=== PATIENT | female | born 1965 | race Caucasian/White ===

== ENCOUNTER 2021-10-05 11:44 | Emergency (ER) | payer SELFPAY ==
[2021-10-05 12:55] LABS: HEMOGLOBIN 15.3 gm/dl (12.3-15.3); RED BLOOD COUNT 5.12 M/UL (4.00-5.10); WHITE BLOOD COUNT 7.8 K/UL (4.5-11.0)
== END 2021-10-05 13:19 | disposition home or self-care (01) ==
LOC: ER1 11:44
PROVIDERS: Physician Assistant Medical
DX: J02.9 Acute pharyngitis, unspecified (principal); F17.210 Nicotine dependence, cigarettes, uncomplicated; Z88.5 Allergy status to narcotic agent
CPT/HCPCS: 80053; 83880; 84439; 84443; 84484; 85025; 99283